=== PATIENT | female | born 1980 | race Caucasian/White ===

== ENCOUNTER 2019-03-20 13:10 | Emergency (ER) | payer BC ==
[~2019-03-20] VITALS: Ht 157.5 cm; Wt 63.0 kg
[~2019-03-20 13:10] MED LIST: CEPHALEXIN500 MG PO; LORTAB 10-325 M1 TAB PO
[2019-03-20] MEDS ORDERED: OB COMPLET2 PO (14:18)
[2019-03-20 14:34] LABS: URINE BILIRUBIN - DIPSTICK NEGATIVE (NEGATIVE); URINE BLOOD DIPSTICK TRACE-LYSED (NEGATIVE); URINE COLOR YELLOW; URINE GLUCOSE - DIPSTICK NEGATIVE (NEGATIVE); URINE KETONE >=80 mg/dL (NEGATIVE); URINE PROTEIN - DIPSTICK TRACE mg/dL (NEG-TRACE)
[2019-03-20 14:35] LABS: HEMATOCRIT 34.2 % (37.0-47.0); HEMOGLOBIN 11.2 g/dl (12.0-16.0); IMMATURE GRANULOCYTES 0.5 % (0.0-5.0); MEAN CELL VOLUME 94.2 fL CALC (80.0-100.0); MEAN CORPUSCULAR HGB 30.9 pG CALC (26.0-32.0); MEAN CORPUSCULAR HGB CONC 32.7 g/L CALC (32.0-36.0); NEUT# 7.5 thou/uL (2.00-7.15); RED BLOOD COUNT 3.63 mill/uL (4.20-5.60); RED CELL DISTRI WIDTH 13.4 % (11.5-15.5)
[2019-03-20 14:39] LABS: URINE LEUK ESTERASE MODERATE (NEGATIVE); URINE NITRITE - DIPSTICK POSITIVE (Negative)
[2019-03-20 14:52] LABS: URINE BACTERIA MANY hpf; URINE SQUAMOUS EPITHELIAL CELL FEW EPI/hpf (0-FEW); URINE WBC TNTC WBC/hpf (0-5)
[2019-03-20 14:57] LABS: ALBUMIN 3.7 g/dL (3.2-5.0); ALKALINE PHOSPHATASE 132 u/l (38-126); ANION GAP 15 (6-22 (CALC)); BILIRUBIN, TOTAL 0.6 mg/dL (0.0-1.4); BUN 7 mg/dL (7-17); BUN/CREATININE RATIO 10 (12-20 (CALC)); CARBON DIOXIDE 18 mmol/l (22-30); CHLORIDE 106 mmol/l (95-108); CREATININE 0.7 mg/dL (0.5-1.0); GFR > 60 ML/MIN (>=60 (CALC)); GFR FOR AFR.AMER. > 60 ML/MIN (>=60 (CALC)); POTASSIUM 3.9 mmol/l (3.5-5.1); SGOT/AST 26 u/l (14-36); SODIUM 135 mmol/l (137-146); TOTAL PROTEIN 6.9 g/dL (6.3-8.2)
[2019-03-20] MEDS ORDERED: TAM75CAP PO ×2 (15:16→16:14)
[2019-03-20] MEDS ORDERED: CEPHALEXIN500 MG PO ×2 (15:16→16:14)
[2019-03-20 15:40] VITALS: BP 98/52
--- NOTE | 2019-03-23 15:33 | NUR ---
Was not able to reach pt regarding urine culture results. Certified letter regarding urine culture results was sent to the address on file. Letter instructed pt to picking supervisor new rx at [facility].
== END 2019-03-20 15:40 | disposition home or self-care (01) | DRG 833 ==
LOC: ED 13:10
PROVIDERS: Emergency Medicine
DX: O99.513 Diseases of the respiratory system complicating pregnancy, third trimester (principal); J11.1 Influenza due to unidentified influenza virus with other respiratory manifestations; O23.43 Unspecified infection of urinary tract in pregnancy, third trimester; B96.89 Other specified bacterial agents as the cause of diseases classified elsewhere; Z3A.31 31 weeks gestation of pregnancy